=== PATIENT | female | born 1945 | race Caucasian/White ===

== ENCOUNTER 2019-07-14 02:05 | Observation (INO) | payer BC, MEDICARE ==
[~2019-07-14] VITALS: Ht 154.9 cm; Wt 157.5 kg
[~2019-07-14 02:05] MED LIST: ASCO100T4 PO; ASPI-482 PO; ATEN25TA PO; CALCIUM 500+VI1 EACH PO; CYCL5TAB PO; HYDR-3164 PO; IBUP200C PO; LISI10TA2 PO; LORA10CA PO; LORA10TA68 PO; MECL-75 PO; METF500T16 PO; MULT1CAP15 PO; POTASSIUM GLUCONATE; SIMV20TA18 PO; vitamin e
--- NOTE | 2019-07-14 02:34 | PHYS DOC ---
Past Medical History Past Medical History: Diabetes-Type II, High Cholesterol, Hypertension Additional Past Medical Histor: ABNORMAL VAGINAL BLEEDING Past Surgical History: Hysterectomy, Other Additional Past Surgical Histo: BILATEARL KNEE SURGERY Alcohol Use: None Drug Use: None Adult General Chief Complaint Chief Complaint: BACK PAIN OR INJURY HPI HPI 73-year-old female with underlying history of chronic back spasms presents to the emergency department with complaints of back spasm on the right side which started and it is worse over night. She states on Wednesday she saw her chiropractor, Wednesday felt better however overnight she states spasm has gotten worse. She denies any numbness or tingling down her legs. Movements make her pain worse. Patient states no nausea, vomiting, chest pain, SOB, abdominal pain or weakness. Review of Systems Review of Systems Constitutional: Denies fever or chills [] Respiratory: Denies cough or shortness of breath [] Cardiovascular: No additional information not addressed in HPI [] GI: Denies abdominal pain, nausea, vomiting, bloody stools or diarrhea [] : Denies dysuria or hematuria [] Musculoskeletal: + back pain/spasm Integument: Denies rash or skin lesions [] Neurologic: Denies headache, focal weakness or sensory changes [] All other systems were reviewed and found to be within normal limits, except as documented in this note. Current Medications Current Medications Current Medications Medications (Trade) Dose Ordered Sig/Shawna Start Time Stop Time Status Last Admin Dose Admin Dexamethasone Sodium Phosphate (Decadron) 10 mg 1X ONCE 07/14/19 02:45 07/14/19 02:46 DC 07/14/19 03:15 10 MG Orphenadrine Citrate (Norflex) 60 mg 1X ONCE 07/14/19 02:45 07/14/19 02:46 DC 07/14/19 03:13 60 MG Allergies Allergies Allergies Coded Allergies Type Severity Reaction Last Updated Verified adhesive Allergy Intermediate TAPE 03/06/16 Yes hydrochlorothiazide Allergy Intermediate rash 08/28/13 Yes Physical Exam Physical Exam Constitutional: Well developed, well nourished, no acute distress, non-toxic ap pearance. [] HENT: Normocephalic, atraumatic, bilateral external ears normal, oropharynx moist, no oral exudates, nose normal. [] Eyes: PERRLA, EOMI, conjunctiva normal, no discharge. [] Neck: Normal range of motion, no tenderness, supple, no stridor. [] Cardiovascular:Heart rate regular rhythm, no murmur [] Lungs & Thorax: Bilateral breath sounds clear to auscultation [] Abdomen: Bowel sounds normal, soft, no tenderness, no masses, no pulsatile masses. [] Skin: Warm, dry, no erythema, no rash. [] Back: Tenderness appreciated to right low back, no midline tenderness appreciated, no CVA tenderness. [] Extremities: No tenderness, no edema. [] Neurologic: Alert and oriented X 3, no focal deficits noted. [] Psychologic: Affect normal, judgement normal, mood normal. [] Current Patient Data Vital Signs Vital Signs Date Time Temp Pulse Resp B/P (MAP) Pulse Ox O2 Delivery O2 Flow Rate FiO2 07/14/19 02:05 98.1 88 18 142/69 (93) 95 Room Air 98.1 EKG EKG [] Radiology/Procedures Radiology/Procedures [] Course & Med Decision Making Course & Med Decision Making Pertinent Labs and Imaging studies reviewed. (See chart for details) []73-year-old female with underlying history of chronic back spasms presents to the emergency department with complaints of back spasm on the right side which started and it is worse over night. She states on Wednesday she saw her chiropractor, Wednesday felt better however overnight she states spasm has gotten worse. She denies any numbness or tingling down her legs. Movements make her pain worse. Patient states no nausea, vomiting, chest pain, SOB, abdominal pain or weakness. Norflex 60mg IM, Toradol 30mg IV, Decadron 10mg IV NO imaging at this time, given no injury Routine labs drawn Attempted to ambulate patient, she was able to get to the side of the bed with assistance x 3 however unable to get up on her own to ambulate Given patient lives alone - unable to dc home without safe dc plan Will admit for observation Nora Disclaimer Nora Disclaimer This electronic medical record was generated, in whole or in part, using a voice recognition dictation system. Departure Departure Impression: Primary Impression: Back pain Additional Impression: Back spasm Disposition: HOME, SELF-CARE Condition: STABLE Referrals: ANSHU MURO MD (PCP) Scripts Hydrocodone/Apap 5-325 (NORCO 5-325 TABLET) 1 Each Tablet 1 TAB PO PRN Q4-6HRS PRN for PAIN, #10 TAB 0 Refills Prov: MADDY LARSON MD 07/14/19 Problem Qualifiers Primary Impression: Back pain Back pain location: low back pain Chronicity: chronic Back pain laterality: unspecified Sciatica presence: without sciatica Qualified Codes: M54.5 - Low back pain; G89.29 - Other chronic pain MADDY LARSON MD Jul 14, 2019 02:34
[2019-07-14] MEDS ORDERED: DEXAMETHASONE SOD PHOS 4 MG/ML VIAL IVP ONE (02:45)
[2019-07-14] MEDS ORDERED: ORPHENADRINE CITRATE 60 MG/2 ML VIAL. IM ONE (02:45)
[2019-07-14] MEDS ORDERED: HYDR-3164 PO (04:27)
[2019-07-14 05:18] LABS: BASO % 0 % (0-3); EOS # 0.1 x10^3/uL (0.0-0.7); EOS % 1 % (0-3); HEMATOCRIT 39.6 % (36.0-47.0); HEMOGLOBIN 13.2 g/dL (12.0-15.5); LYMPH # 1.5 x10^3/uL (1.0-4.8); LYMPH % 16 % (24-48); MEAN CORPUSCULAR HEMOGLOBIN 28 pg (25-35); MEAN CORPUSCULAR HGB CONC 33 g/dL (31-37); MEAN CORPUSCULAR VOLUME 83 fL (79-100); MONO # 0.3 x10^3/uL (0.0-1.1); MONO % 3 % (0-9); NEUT # 7.6 x10^3/uL (1.8-7.7); NEUT % 80 % (31-73); PLATELET COUNT 240 x10^3/uL (140-400); RED BLOOD COUNT 4.79 x10^6/uL (3.50-5.40); RED CELL DISTRIBUTION WIDTH 14.7 % (11.5-14.5); WHITE BLOOD COUNT 9.5 x10^3/uL (4.0-11.0)
[2019-07-14] MEDS ORDERED: ACETAMINOPHEN 325 MG TABLET. PO PRN (05:30)
[2019-07-14] MEDS ORDERED: MORPHINE SULFATE 2 MG/ML VIAL. IV PRN (05:30)
[2019-07-14] MEDS ORDERED: ONDANSETRON PF 4 MG/2 ML VIAL. IV PRN (05:30)
[2019-07-14 05:33] LABS: ALBUMIN 3.3 g/dL (3.4-5.0); ALBUMIN/GLOBULIN RATIO 0.8 (1.0-1.7); CALCIUM 9.1 mg/dL (8.5-10.1); GFR 54.2; POTASSIUM 4.5 mmol/L (3.5-5.1); TOTAL BILIRUBIN 0.3 mg/dL (0.2-1.0); TOTAL PROTEIN 7.5 g/dL (6.4-8.2)
[2019-07-14 06:00] VITALS: BP 157/67
--- NOTE | 2019-07-14 06:30 | NUR ---
The patient, VICTOR M FALL, 73 y/o, F admitted by ALESSANDRA CROOK MD, was given written information regarding hospital policies, unit procedures and contact persons. Patient admission complete, plan of care discussed, and admit packet reviewed. Allergies and medications verified and valuables were checked and left in room with patient. Patient in bed, bed in lowest/locked position, and call light within reach, no other needs voiced at this time.
[2019-07-14 07:00] VITALS: BP 151/71
--- NOTE | 2019-07-14 08:17 | PDOC1 ---
History and Physical Date of Admission Date of Admission DATE: 07/14/19 TIME: 08:16 History of Present Illness History of Present Illness Ms Montelongo is a 73yo F w/ PMHx Diabetes-Type II, High Cholesterol, Hypertension, and underlying history of chronic back spasms presents to the emergency department with complaints of back spasm on the right side which started on Wednesday (07/11/19). So she saw her chiropractor, Wednesday felt better however overnight she states spasm had gotten worse. She denies any numbness or tingling down her legs. Movements make her pain worse. Patient states no nausea, vomiting, chest pain, SOB, abdominal pain or weakness. On further ROS she notes right shoulder pain with lateral movement and some hand tingling, has been told previously by neurology she likely has carpal tunnel. As she was unable to walk called for admission for overnight observation and further treatment. Past Medical History Cardiovascular: HTN, Hyperlipidemia Pulmonary: Bronchitis Psych: No pertinent hx Musculoskeletal: Osteoarthritis Endocrine: Diabetes Past Surgical History Past Surgical History: Cataract Removal, Total hip replacement, Tonsillectomy, Hysterectomy, Other Family History Family History: Cancer Social History Smoke: No ALCOHOL: none Drugs: None Current Problem List Problem List Problems Medical Problems: (1) Back pain Status: Acute (2) Back spasm Status: Acute Current Medications Current Medications Current Medications Dexamethasone Sodium Phosphate (Decadron) 10 mg 1X ONCE IVP Last administered on 07/14/19at 03:15; Start 07/14/19 at 02:45; Stop 07/14/19 at 02:46; Status DC Orphenadrine Citrate (Norflex) 60 mg 1X ONCE IM Last administered on 07/14/19at 03:13; Start 07/14/19 at 02:45; Stop 07/14/19 at 02:46; Status DC Ondansetron HCl (Zofran) 4 mg PRN Q8HRS PRN IV NAUSEA/VOMITING; Start 07/14/19 at 05:30; Stop 07/15/19 at 05:29 Morphine Sulfate (Morphine Sulfate) 2 mg PRN Q2HR PRN IV PAIN; Start 07/14/19 at 05:30; Stop 07/15/19 at 05:29 Acetaminophen (Tylenol) 650 mg PRN Q4HRS PRN PO FEVER; Start 07/14/19 at 05:30; Stop 07/15/19 at 05:29 Active Scripts Active Ripton 5-325 Tablet (Acetaminophen/Hydrocodone Bitart) 1 Each Tablet 1 Tab PO PRN Q4-6HRS PRN Cyclobenzaprine Hcl 5 Mg Tablet 1 Tab PO TID PRN Ripton 5-325 Tablet (Acetaminophen/Hydrocodone Bitart) 1 Each Tablet 1 Tab PO PRN Q6HRS PRN Meclizine Hcl 25 Mg Tablet 1 Tab PO TID Reported Claritin (Loratadine) 10 Mg Tablet 1 Tab PO DAILY Aspir 81 (Aspirin) 81 Mg Tablet.dr 81 Mg PO DAILY [potassium glutonate] 99 Mg HS Calcium 500+Vit D 400 Tab (Calcium Carbonate/Vitamin D3) 1 Each Tablet 1 Each PO HS Simvastatin 20 Mg Tablet 20 Mg PO DAILY Atenolol 25 Mg Tablet 25 Mg PO DAILY Metformin Hcl 500 Mg Tablet 500 Mg PO HS Ibuprofen 200 Mg Capsule 400 Mg PO DAILY Lisinopril 10 Mg Tablet 10 Mg PO DAILY Vitamin C (Ascorbic Acid) 100 Mg Tablet 1,000 Mg PO DAILY [vitamin e] 400 Units DAILY Multivitamins (Multivitamin) 1 Each Capsule 1 Each PO DAILY Allergies Allergies: Coded Allergies: adhesive (Verified Allergy, Intermediate, TAPE, 03/06/16) hydrochlorothiazide (Verified Allergy, Intermediate, rash, 08/28/13) ROS General: YES: Fatigue, Malaise; No: Chills, Night Sweats, Appetite, Other PSYCHOLOGICAL ROS: YES: Anxiety; No: Behavioral Disorder, Concentration difficultie, Decreased libido, Depression, Disorientation, Hallucinations, Hostility, Irritablity, Memory difficulties, Mood Swings, Obsessive thoughts, Physical abuse, Sexual abuse, Sleep disturbances, Suicidal ideation, Other Eyes: No Blurry vision, No Decreased vision, No Double vision, No Dry eyes, No Excessive tearing, No Eye Pain, No Itchy Eyes, No Loss of vision, No Photophobia, No Scotomata, No Uses contacts, No Uses glasses, No Other HEENT: No: Heacaches, Visual Changes, Hearing change, Nasal congestion, Nasal discharge, Oral lesions, Sinus pain, Sore Throat, Epistaxis, Sneezing, Snoring, Tinnitus, Vertigo, Vocal changes, Other ALLERGY AND IMMUNOLOGY: No: Hives, Insect Bite Sensitivity, Itchy/Watery Eyes, Nasal Congestion, Post Nasal Drip, Seasonal Allergies, Other Hematological and Lymphatic: No: Bleeding Problems, Blood Clots, Blood Tr ansfusions, Brusing, Night Sweats, Pallor, Swollen Lymph Nodes, Other ENDOCRINE: No: Breast Changes, Galactorrhea, Hair Pattern Changes, Hot Flashes, Malaise/lethargy, Mood Swings, Palpitations, Polydipsia/polyuria, Skin Changes, Temperature Intolerance, Unexpected Weight Changes, Other Breast: No New/Changing Breast Lumps, No Nipple changes, No Nipple discharge, No Other Respiratory: No: Cough, Hemoptysis, Orthopnea, Pleuritic Pain, Shortness of breath, SOB with excertion, Sputum Changes, Stridor, Tachypnea, Wheezing, Other Cardiovascular: No Chest Pain, No Palpitations, No Orthopnea, No Paroxysmal Noc. Dyspnea, No Edema, No Lt Headedness, No Other Gastrointestinal: No Nausea, No Vomiting, No Abdominal Pain, No Diarrhea, No Constipation, No Melena, No Hematochezia, No Other Genitourinary: No Dysuria, No Frequency, No Incontinence, No Hematuria, No Retention, No Discharge, No Urgency, No Pain, No Flank Pain, No Other, No , No , No , No , No , No , No Musculoskeletal: Yes Joint Pain, Yes Muscle Pain; No Gait Disturbance, No Joint Stiffness, No Joint Swelling, No Muscular Weakness, No Pain In:, No Swelling In:, No Other Vitals Vitals Vital Signs Date Time Temp Pulse Resp B/P (MAP) Pulse Ox O2 Delivery O2 Flow Rate FiO2 07/14/19 06:34 Room Air 07/14/19 06:00 97.9 94 18 157/67 (97) 92 97.9 Labs Labs Laboratory Tests Test 07/14/19 04:55 White Blood Count 9.5 x10^3/uL (4.0-11.0) Red Blood Count 4.79 x10^6/uL (3.50-5.40) Hemoglobin 13.2 g/dL (12.0-15.5) Hematocrit 39.6 % (36.0-47.0) Mean Corpuscular Volume 83 fL (79-100) Mean Corpuscular Hemoglobin 28 pg (25-35) Mean Corpuscular Hemoglobin Concent 33 g/dL (31-37) Red Cell Distribution Width 14.7 % (11.5-14.5) Platelet Count 240 x10^3/uL (140-400) Neutrophils (%) (Auto) 80 % (31-73) Lymphocytes (%) (Auto) 16 % (24-48) Monocytes (%) (Auto) 3 % (0-9) Eosinophils (%) (Auto) 1 % (0-3) Basophils (%) (Auto) 0 % (0-3) Neutrophils # (Auto) 7.6 x10^3/uL (1.8-7.7) Lymphocytes # (Auto) 1.5 x10^3/uL (1.0-4.8) Monocytes # (Auto) 0.3 x10^3/uL (0.0-1.1) Eosinophils # (Auto) 0.1 x10^3/uL (0.0-0.7) Basophils # (Auto) 0.0 x10^3/uL (0.0-0.2) Sodium Level 139 mmol/L (136-145) Potassium Level 4.5 mmol/L (3.5-5.1) Chloride Level 103 mmol/L (98-107) Carbon Dioxide Level 24 mmol/L (21-32) Anion Gap 12 (6-14) Blood Urea Nitrogen 18 mg/dL (7-20) Creatinine 1.0 mg/dL (0.6-1.0) Estimated GFR (Cockcroft-Gault) 54.2 BUN/Creatinine Ratio 18 (6-20) Glucose Level 130 mg/dL (70-99) Calcium Level 9.1 mg/dL (8.5-10.1) Total Bilirubin 0.3 mg/dL (0.2-1.0) Aspartate Amino Transf (AST/SGOT) 15 U/L (15-37) Alanine Aminotransferase (ALT/SGPT) 16 U/L (14-59) Alkaline Phosphatase 79 U/L (46-116) Total Protein 7.5 g/dL (6.4-8.2) Albumin 3.3 g/dL (3.4-5.0) Albumin/Globulin Ratio 0.8 (1.0-1.7) Laboratory Tests Test 07/14/19 04:55 White Blood Count 9.5 x10^3/uL (4.0-11.0) Red Blood Count 4.79 x10^6/uL (3.50-5.40) Hemoglobin 13.2 g/dL (12.0-15.5) Hematocrit 39.6 % (36.0-47.0) Mean Corpuscular Volume 83 fL (79-100) Mean Corpuscular Hemoglobin 28 pg (25-35) Mean Corpuscular Hemoglobin Concent 33 g/dL (31-37) Red Cell Distribution Width 14.7 % (11.5-14.5) Platelet Count 240 x10^3/uL (140-400) Neutrophils (%) (Auto) 80 % (31-73) Lymphocytes (%) (Auto) 16 % (24-48) Monocytes (%) (Auto) 3 % (0-9) Eosinophils (%) (Auto) 1 % (0-3) Basophils (%) (Auto) 0 % (0-3) Neutrophils # (Auto) 7.6 x10^3/uL (1.8-7.7) Lymphocytes # (Auto) 1.5 x10^3/uL (1.0-4.8) Monocytes # (Auto) 0.3 x10^3/uL (0.0-1.1) Eosinophils # (Auto) 0.1 x10^3/uL (0.0-0.7) Basophils # (Auto) 0.0 x10^3/uL (0.0-0.2) Sodium Level 139 mmol/L (136-145) Potassium Level 4.5 mmol/L (3.5-5.1) Chloride Level 103 mmol/L (98-107) Carbon Dioxide Level 24 mmol/L (21-32) Anion Gap 12 (6-14) Blood Urea Nitrogen 18 mg/dL (7-20) Creatinine 1.0 mg/dL (0.6-1.0) Estimated GFR (Cockcroft-Gault) 54.2 BUN/Creatinine Ratio 18 (6-20) Glucose Level 130 mg/dL (70-99) Calcium Level 9.1 mg/dL (8.5-10.1) Total Bilirubin 0.3 mg/dL (0.2-1.0) Aspartate Amino Transf (AST/SGOT) 15 U/L (15-37) Alanine Aminotransferase (ALT/SGPT) 16 U/L (14-59) Alkaline Phosphatase 79 U/L (46-116) Total Protein 7.5 g/dL (6.4-8.2) Albumin 3.3 g/dL (3.4-5.0) Albumin/Globulin Ratio 0.8 (1.0-1.7) Images Images MRI Lumbar spine 2016 - The changes of degenerative disc disease are seen throughout the lumbar spine. These findings result in mild to moderate left greater than right central spinal canal stenosis at L2-3, mild left greater than right central spinal canal stenosis at L3-4 and mild central spinal canal stenosis at L4-5. Multilevel neural foraminal stenosis of varying severity is seen as outlined above. At the L4-5 disc space a right lateral/far lateral focal disc herniation is seen which results in severe right neural foraminal stenosis at L4-5 and impinges upon the right L4 nerve root within the neural foramen VTE Prophylaxis Ordered VTE Prophylaxis Devices: No VTE Pharmacological Prophylaxi: Yes Assessment/Plan Assessment/Plan A/P: Unable to walk - related to right lower back pain, no radiculopathy. Will have norflex injection, steroids. NSAIDs, heat, lidoderm and consult PMR and PT Right lower back spasms - with h/o some lumbar spinal nerve impingement she does not have L4 radiculopathy as she did previously. Should do well with conservative measures of 5 days of steroids, muscle relaxants and aggressive PT, heat, lidoderm Diabetes-Type II - basal bolus plus regimen for insulin High Cholesterol - cont statin Hypertension - cont meds FEN - ADA diet PPX - lovenox FULL CODE Dispo - observe after medications, PT and PMR recommendations, likely she can go home later today with home health or outpatient aquatic PT. ALESSANDRA CROOK MD Jul 14, 2019 08:17
[2019-07-14] MEDS ORDERED: ASPIRIN ENTERIC COATED 81 MG TABLET.DR. PO SCH ×2 (10:00→21:00)
[2019-07-14] MEDS ORDERED: HYDROcodone/APAP 5/325MG 1 TAB TABLET PO PRN (10:00)
[2019-07-14] MEDS ORDERED: LISINOPRIL 10 MG TABLET PO SCH ×2 (10:00→21:00)
[2019-07-14] MEDS ORDERED: ATENOLOL 25 MG TABLET. PO SCH (10:00)
[2019-07-14 11:00] VITALS: BP 168/80
[2019-07-14] MEDS ORDERED: tiZANidine 4 MG TABLET. PO PRN (11:30)
[2019-07-14] MEDS ORDERED: methylPREDNISolone 4 MG TABLET. PO SCH (11:30)
[2019-07-14 15:00] VITALS: BP 152/71
[2019-07-14] MEDS ORDERED: TIZA4TAB2 PO (15:15)
[2019-07-14] MEDS ORDERED: PRED20TA PO (15:15)
--- NOTE | 2019-07-14 15:21 | SNU/HH DC ---
DISCHARGE WITH HOME HEALTH DISCHARGE INFORMATION: Discharge Date: Jul 14, 2019 Final Diagnosis: Problems Medical Problems: (1) Back pain Status: Acute (2) Back spasm Status: Acute Condition on Discharge: Stable CODE STATUS: Code Status: Full HOME HEALTH: Face to Face: I certify this patient is under my care and that I, or a nurse practitioner or physician's phlebotomist medical lab assistant working with me, had a face to face encounter that meets the physician face to face encounter requirements with this patient on 07/14/2019. Medical Complications: DJD, Falls RN For Eval/Treatment: Yes Physical Therapy For: Evalulation/Treatment Occupational Therapy For: Evaluation/Treatment Pt Meets Homebound Status: Unsteady balance w/ amb,, Limited distance walking POST DISCHARGE ORDERS: Activity Instructions for Disc: No restrictions Weight Bearing Status after Di: No restrictions DIET AFTER DISCHARGE: ADA CHECKS AFTER DISCHARGE: Checks after discharge: Check blood press - daily TREATMENT/EQUIPMENT ORDERS: Adaptive Equipment Issued: Front wheeled walker CERTIFICATION STATEMENT: Certification Statement: Certification Statement: Based on the above finding, I certify that this patient is confined to the home and needs intermittent [facility] care, physical therapy and/or speech therapy, or continues to need occupational therapy.~ This patient is under my care, and I have initiated the establishment of the plan of care.~ This patient will be followed by myself or a community physician who will periodically review the plan of care. Home Meds Active Scripts Prednisone (PREDNISONE) 20 Mg Tablet, 1 TAB PO DAILY for Lumbago for 5 Days, #5 TAB Prov:ALESSANDRA CROOK MD 07/14/19 Tizanidine Hcl (TIZANIDINE HCL) 4 Mg Tablet, 4 MG PO PRN Q8HRS PRN for MUSCLE SPASMS for 10 Days, #30 TAB Prov:ALESSANDRA CROOK MD 07/14/19 Hydrocodone/Apap 5-325 (NORCO 5-325 TABLET) 1 Each Tablet, 1 TAB PO PRN Q4-6HRS PRN for PAIN, #10 TAB 0 Refills Prov:MADDY LARSON MD 07/14/19 Cyclobenzaprine Hcl (CYCLOBENZAPRINE HCL) 5 Mg Tablet, 1 TAB PO TID PRN for MUSCLE SPASMS, #10 TAB Prov:BABAK LLOYD MD 03/20/16 Hydrocodone/Apap 5-325 (NORCO 5-325 TABLET) 1 Each Tablet, 1 TAB PO PRN Q6HRS PRN for PAIN, #10 TAB Prov:BABAK LLOYD MD 03/20/16 Meclizine Hcl (MECLIZINE HCL) 25 Mg Tablet, 1 TAB PO TID, #30 TAB 2 Refills Prov:NETO CAMACHO MD 01/02/16 Reported Medications Loratadine (CLARITIN) 10 Mg Tablet, 1 TAB PO DAILY, #30 TAB 5 Refills 01/01/16 Aspirin (ASPIR 81) 81 Mg Tablet.dr, 81 MG PO DAILY 08/28/13 [potassium glutonate] No Conflict Check, 99 MG HS 08/04/13 Calcium Carbonate/Vitamin D3 (CALCIUM 500+VIT D 400 TAB) 1 Each Tablet, 1 EACH PO HS 08/04/13 Simvastatin (SIMVASTATIN) 20 Mg Tablet, 20 MG PO DAILY 08/04/13 Atenolol (ATENOLOL) 25 Mg Tablet, 25 MG PO DAILY 08/04/13 Metformin Hcl (METFORMIN HCL) 500 Mg Tablet, 500 MG PO HS 08/04/13 Ibuprofen (IBUPROFEN) 200 Mg Capsule, 400 MG PO DAILY 08/04/13 Lisinopril (LISINOPRIL) 10 Mg Tablet, 10 MG PO DAILY 08/04/13 Ascorbic Acid (VITAMIN C) 100 Mg Tablet, 1000 MG PO DAILY 08/04/13 [vitamin e] No Conflict Check, 400 UNITS DAILY 08/04/13 Multivitamin (MULTIVITAMINS) 1 Each Capsule, 1 EACH PO DAILY 08/04/13 ALESSANDRA CROOK MD Jul 14, 2019 15:21
--- NOTE | 2019-07-14 16:46 | NUR ---
Discharge instructions given with prescriptions sent to pharmacy at [facility]. Answered questions and concerns. Verbalized understanding. sr. merchandise planner will arrange transportation.
--- NOTE | 2019-07-14 17:47 | NUR ---
Patient discharged via EMS at 1730.
[2019-07-14] MEDS ORDERED: metFORMIN 500 MG TABLET PO SCH (21:00)
[2019-07-14] MEDS ORDERED: SIMVASTATIN 20 MG TABLET PO SCH (21:00)
--- NOTE | 2019-07-15 00:04 | CONS ---
DATE OF CONSULTATION: 07/14/2019 ATTENDING PHYSICIAN: Dr. Wall. REASON FOR CONSULTATION: The patient was seen at the request of Dr. Wall for rehab evaluation. HISTORY OF PRESENT ILLNESS: This is a 73-year-old right-handed female with chronic lower back pain with recent exacerbation. The patient apparently had chiropractic treatment on 07/11/2019, but the pain came back on the evening of 07/12/2019. The patient was admitted for further evaluation and treatment. She admits with steroid Dosepak the pain is better. She admits some right shoulder pain in the last few days. The patient denies any tingling or numbness in the extremities or any trouble with her bowel or bladder control. PAST MEDICAL HISTORY: Includes hypertension, hyperlipidemia, bronchitis, osteoarthritis, diabetes mellitus, status post bilateral total knee arthroplasty and also hip replacement, tonsillectomy, hysterectomy, and cataract surgery. FAMILY HISTORY: Carcinoma. ALLERGIES: She is known allergic to ADHESIVE and HYDROCHLOROTHIAZIDE. SOCIAL HISTORY: The patient lives in a high-rise apartment alone. She uses a walker to get around. The patient feels comfortable to go home before the bad weather comes. The patient would like to have ambulance to take her home. The patient is having difficulty to climb into her sister's SUV. The patient also with known abdominal vaginal bleeding in the past. PHYSICAL EXAMINATION: Today, revealed an elderly female. She is alert, oriented to time, place, person and circumstance and follows commands appropriately, moves all 4 extremities voluntarily where she had 4+/5 grade muscle strength. She had tenderness to palpation over anterior aspect of right shoulder and over right cervical paraspinal and posterior shoulder girdle muscles and also over lumbar paraspinal muscles extending over to sacroiliac joint area. Straight leg raising test was negative bilaterally. She had equal perception of touch and pinprick sensation bilaterally. Deep tendon reflexes are decreased overall. She is independent with bed mobility and transfers and up walking using a roller walker. She is not using proper body mechanics during bed mobility and transfers. Straight leg raising test is negative bilaterally. ASSESSMENT: Elderly female with chronic lower back pain from degenerative disk disease and degenerative joint disease of lumbar vertebrae with recent exacerbation and no clinical evidence of ongoing lumbar radiculopathy, also sprain and tendinitis right shoulder. The patient with known chronic neck pain from degenerative disk disease and degenerative joint disease of cervical vertebrae. No clinical evidence of cervical radiculopathy. The patient is status post bilateral total knee arthroplasty, diabetes mellitus, hypertension, hyperlipidemia, and obesity. RECOMMENDATIONS: I have instructed in a home program of physical modalities, stretching exercises, and trigger point massage to her cervical and lumbar paraspinal muscles and physical modalities and Codman exercise to her right shoulder and reviewed with her proper body mechanics. Home when medically stable with outpatient or home health followup. Dr. Wall, I appreciate asking me to participate in the care of this interesting patient. I will be glad to follow her with you as needed for her rehabilitation. JOHN DELGADO MD DR: OLGA/ana JOB#: [id number] / [id number]
--- NOTE | 2019-07-16 15:46 | PDOC3 ---
Discharge Summary Visit Information Date of Admission: Jul 14, 2019 Date of Discharge: Jul 14, 2019 Admitting Diagnosis: Intractable back pain, unable to walk Final Diagnosis Problems Medical Problems: (1) Back pain Status: Acute (2) Back spasm Status: Acute Brief Hospital Course Allergies Allergies Coded Allergies Type Severity Reaction Last Updated Verified adhesive Allergy Intermediate TAPE 03/06/16 Yes hydrochlorothiazide Allergy Intermediate rash 08/28/13 Yes Brief Hospital Course Ms Montelongo is a 73yo F w/ PMHx Diabetes-Type II, High Cholesterol, Hypertension, and underlying history of chronic back spasms presents to the emergency department with complaints of back spasm on the right side which started on Wednesday (07/11/19). So she saw her chiropractor, Wednesday felt better however overnight she states spasm had gotten worse. She denies any numbness or tingling down her legs. Movements make her pain worse. Patient states no nausea, vomiting, chest pain, SOB, abdominal pain or weakness. On further ROS she notes right shoulder pain with lateral movement and some hand tingling, has been told previously by neurology she likely has carpal tunnel. As she was unable to walk called for admission for overnight observation and further treatment. Seen by PT, recommended home health. Seen by PMR Physician as well - instructed in a home program of physical modalities, stretching exercises, and trigger point massage to her cervical and lumbar paraspinal muscles and physical modalities and Codman exercise to her right shoulder and reviewed with her proper body mechanics. MRI Lumbar spine 2015 - The changes of degenerative disc disease are seen throughout the lumbar spine. These findings result in mild to moderate left greater than right central spinal canal stenosis at L2-3, mild left greater than right central spinal canal stenosis at L3-4 and mild central spinal canal stenosis at L4-5. Multilevel neural foraminal stenosis of varying severity is seen as outlined above. At the L4-5 disc space a right lateral/far lateral focal disc herniation is seen which results in severe right neural foraminal stenosis at L4-5 and impinges upon the right L4 nerve root within the neural foramen Problem list: Unable to walk - related to right lower back pain, no radiculopathy. Will have norflex injection, steroids. NSAIDs, heat, lidoderm and consult PMR and PT Right lower back spasms - with h/o some lumbar spinal nerve impingement she does not have L4 radiculopathy as she did previously. Should do well with conservative measures of 5 days of steroids, muscle relaxants and aggressive PT, heat, lidoderm Right shoulder pain - likely rotator cuff sprain of teres minor and supraspinatus, will get PT, NSAIDs, reduce use and overhead movement and if symptoms persist beyond 3 months an MRI may be indicated. Diabetes-Type II - basal bolus plus regimen for insulin High Cholesterol - cont statin Hypertension - cont meds Observed after medications, PT and PMR recommendations, she can go home later today with home health or outpatient aquatic PT. Greater than 135 minutes spent on same day admit and d/c. Discharge Information Condition at Discharge: Improved Follow Up: Weeks (1) Disposition/Orders: D/C to Home w/ HH Scheduled Ascorbic Acid (Vitamin C) 100 Mg Tablet, 1,000 MG PO DAILY, (Reported) Entered as Reported by: MACIEJ ROMERO on 08/04/13 125 Last Action: Reviewed on 07/14/19624 by CONNOR REED Aspirin (Aspir 81) 81 Mg Tablet.dr, 81 MG PO DAILY, (Reported) Entered as Reported by: VIVIAN GAYTAN on 08/28/13 0639 Last Action: Continued on 07/14/191002 by ALESSANDRA CROOK MD Atenolol (Atenolol) 25 Mg Tablet, 25 MG PO DAILY, (Reported) Entered as Reported by: MACIEJ ROMERO on 08/04/13 1256 Last Action: Continued on 07/14/191002 by ALESSANDRA CROOK MD Calcium Carbonate/Vitamin D3 (Calcium 500+Vit D 400 Tab) 1 Each Tablet, 1 EACH PO HS, (Reported) Entered as Reported by: MACIEJ ROMERO on 08/04/13 1258 Last Action: Reviewed on 07/14/19624 by CONNOR REED Ibuprofen (Ibuprofen) 200 Mg Capsule, 400 MG PO DAILY, (Reported) Entered as Reported by: MACIEJ ROMERO on 08/04/13 1255 Last Action: Reviewed on 07/14/19624 by CONNOR REED Lisinopril (Lisinopril) 10 Mg Tablet, 10 MG PO DAILY, (Reported) Entered as Reported by: MACIEJ ROMERO on 08/04/13 1254 Last Action: Continued on 07/14/19 100 by ALESSANDRA CROOK MD Loratadine (Claritin) 10 Mg Tablet, 1 TAB PO DAILY, #30 Ref 5 (Reported) Entered as Reported by: MONICA HIRSCH on 01/01/16 0917 Last Action: Reviewed on 07/14/19624 by CONNOR REED Meclizine Hcl (Meclizine Hcl) 25 Mg Tablet, 1 TAB PO TID, #30 Ref 2 Prescribed by: NETO CAMACHO on 01/02/16 0757 Metformin Hcl (Metformin Hcl) 500 Mg Tablet, 500 MG PO HS, (Reported) Entered as Reported by: MACIEJ ROMERO on 08/04/13 1255 Last Action: Continued on 07/14/191002 by ALESSANDRA CROOK MD Multivitamin (Multivitamins) 1 Each Capsule, 1 EACH PO DAILY, (Reported) Entered as Reported by: MACIEJ ROMERO on 08/04/13 1249 Last Action: Reviewed on 07/14/19624 by CONNOR REED Prednisone (Prednisone) 20 Mg Tablet, 1 TAB PO DAILY for Lumbago for 5 Days, #5 Prescribed by: ALESSANDRA CROOK MD on 07/14/19 1515 Simvastatin (Simvastatin) 20 Mg Tablet, 20 MG PO DAILY, (Reported) Entered as Reported by: MACIEJ ROMERO on 08/04/13 1257 Last Action: Continued on 07/14/191002 by ALESSANDRA CROOK MD [potassium glutonate] , 99 MG HS, (Reported) Entered as Reported by: MACIEJ ROMERO on 08/04/13 1259 Last Action: Reviewed on 07/14/19624 by CONNOR REED [vitamin e] , 400 UNITS DAILY, (Reported) Entered as Reported by: MACIEJ ROMERO on 08/04/13 1251 Last Action: Reviewed on 07/14/19624 by CONNOR REED Scheduled PRN Cyclobenzaprine Hcl (Cyclobenzaprine Hcl) 5 Mg Tablet, 1 TAB PO TID PRN for MUSCLE SPASMS, #10 Prescribed by: BABAK LLOYD on 03/20/16 0431 Hydrocodone/Apap 5-325 (Tate 5-325 Tablet) 1 Each Tablet, 1 TAB PO PRN Q6HRS PRN for PAIN, #10 Prescribed by: BABAK LLOYD on 03/20/16 0431 Last Action: Continued on 07/14/19 1003 by ALESSANDRA CROOK MD Hydrocodone/Apap 5-325 (Tate 5-325 Tablet) 1 Each Tablet, 1 TAB PO PRN Q4-6HRS PRN for PAIN, #10 Ref 0 Prescribed by: MADDY LARSON MD on 07/14/19 0427 Tizanidine Hcl (Tizanidine Hcl) 4 Mg Tablet, 4 MG PO PRN Q8HRS PRN for MUSCLE SPASMS for 10 Days, #30 Prescribed by: ALESSANDRA CROOK MD on 07/14/19 1515 ALESSANDRA CROOK MD Jul 16, 2019 15:45
== END 2019-07-14 17:30 | disposition home or self-care (01) ==
LOC: ER 02:05 → 4 NORTH 04:47 → INTOOBSV 04:47
PROVIDERS: ADMIT Internal Medicine; ATTEND Internal Medicine
DX: M62.830 Muscle spasm of back (principal); E11.9 Type 2 diabetes mellitus without complications; I10 Essential (primary) hypertension; E78.00 Pure hypercholesterolemia, unspecified; E78.5 Hyperlipidemia, unspecified; M19.90 Unspecified osteoarthritis, unspecified site; Z90.710 Acquired absence of both cervix and uterus; Z79.899 Other long term (current) drug therapy; Z96.649 Presence of unspecified artificial hip joint
CPT/HCPCS: 36415; 80053; 85025; 96372; 96374; 99284; G0378; J1100; J2360; J7509; G0379

== ENCOUNTER → 2020-03-25 | Outpatient (CLI) | payer BC ==
[~2020-03-25] MED LIST changes: +OMEP40CA45 PO; +PRED20TA PO; +TIZA4TAB2 PO
== END | disposition home or self-care (01) ==
LOC: LAB 12:53
PROVIDERS: ATTEND Internal Medicine Gastroenterology
DX: Z01.812 Encounter for preprocedural laboratory examination (principal); Z20.828 Contact with and (suspected) exposure to other viral communicable diseases; Z12.11 Encounter for screening for malignant neoplasm of colon
CPT/HCPCS: U0003-CS

== ENCOUNTER → 2020-03-28 | Day surgery (SDC) | payer BC ==
[~2020-03-28] MED LIST changes: +IV RINGERS,LACTATED 1000ML 1,000 ML IV SCH; +LIDOCAINE 2% PF 5 ML VIAL. ONE; +PROPOFOL 10 MG/ML (20ML) VIAL. IV ONE
[2020-03-28 13:05] VITALS: BP 188/82
== END | disposition home or self-care (01) ==
LOC: ENDOS 10:52
PROVIDERS: ATTEND Internal Medicine Gastroenterology
DX: R19.5 Other fecal abnormalities (principal); I10 Essential (primary) hypertension; E11.9 Type 2 diabetes mellitus without complications; E78.00 Pure hypercholesterolemia, unspecified; K64.0 First degree hemorrhoids; Z88.8 Allergy status to other drugs, medicaments and biological substances; Z79.82 Long term (current) use of aspirin; Z79.899 Other long term (current) drug therapy; Z79.84 Long term (current) use of oral hypoglycemic drugs
CPT/HCPCS: 45378; J2704

== ENCOUNTER 2021-01-22 16:45 | Emergency (ER) | payer BC ==
[2020-03-28 13:05] VITALS: BP 188/82
[~2021-01-22 16:45] MED LIST changes: -IV RINGERS,LACTATED 1000ML 1,000 ML IV SCH; -LIDOCAINE 2% PF 5 ML VIAL. ONE; +LISI10TA16 PO; -LISI10TA2 PO; -OMEP40CA45 PO; +OMEP40CA7 PO; -PROPOFOL 10 MG/ML (20ML) VIAL. IV ONE
== END 2021-01-22 18:00 | disposition left against medical advice (07) ==
LOC: ER 16:45
DX: M62.830 Muscle spasm of back (principal); Z53.21 Procedure and treatment not carried out due to patient leaving prior to being seen by health care provider

== ENCOUNTER 2021-01-24 02:08 | Emergency (ER) | payer BC ==
[~2021-01-24] VITALS: Ht 157.5 cm; Wt 159.9 kg
[2021-01-24] MEDS ORDERED: HYDROcodone/APAP 5/325MG 1 TAB TABLET PO ONE (04:00)
[2021-01-24] MEDS ORDERED: CYCLOBENZAPRINE 10 MG TABLET. PO ONE (04:00)
--- NOTE | 2021-01-24 04:16 | RAD ---
XR THORACIC SPINE 3VIEWS DATE: 01/24/2021 3:52 AM INDICATION: Reason: upper back pain / Spl. Instructions: / History: COMPARISON: None. FINDINGS: The upper thoracic vertebrae are obscured on the lateral view by overlying soft tissue and osseous st ructures. Bones/Alignment: No evidence of acute compression fracture. No listhesis. Joints: Degenerative changes of the spine. Miscellaneous: None. IMPRESSION: No evidence of acute compression fracture. Electronically signed by: Joe Cesar MD (01/24/2021 4:14 AM) PAYAL
--- NOTE | 2021-01-24 04:17 | RAD ---
XR CHEST 1V INDICATION: Reason: upper back pain / Spl. Instructions: / History: . COMPARISON STUDY: None. FINDINGS: Lungs: Normal lung volume. Mild basilar linear opacities. The tracheobronchial tree and hilar structu res are normal. Pleura: No pleural effusion or pneumothorax. Heart and Mediastinum: The cardiomediastinal silhouette is normal. Atherosclerosis of the thoracic ao rta. IMPRESSION: Mild basilar linear opacities, probably subsegmental atelectasis. Electronically signed by: Joe Cesar MD (01/24/2021 4:15 AM) [facility]ITALS[facility]ie
--- NOTE | 2021-01-24 04:33 | PHYS DOC ---
Past Medical History Past Medical History: Diabetes-Type II, High Cholesterol, Hypertension Additional Past Medical Histor: ABNORMAL VAGINAL BLEEDING Past Surgical History: Hysterectomy, Other Additional Past Surgical Histo: BILATEARL KNEE SURGERY Smoking Status: Never Smoker Alcohol Use: None Drug Use: None General Adult EDM: Chief Complaint: BACK PAIN - NO INJURY HPI: HPI: Patient is a 75 year old female presents with for evaluation of upper back pain. Patient states she has had back pain for approximately 3 weeks. Pain has become progressively becoming worse. Patient's pain is located along her her bilateral shoulder blades and occasionally radiates to her neck. Patient has no midline C-spine or T-spine tenderness. Patient has been being treated by her chiropractor--- she has a history of similar pain in the past that has been regulated by her chiropractor's treatments. Her chiropractor treatments have not resolved her pain. Patient did take a muscle relaxant which temporary relieves the pain. Patient's chiropractor recommended patient come to the emergency department for evaluation. Patient's pain intense tonight therefore patient called 911 for further evaluation and treatment. Review of Systems: Review of Systems: Constitutional: Denies fever or chills. [] Eyes: Denies change in visual acuity. [] HENT: Denies nasal congestion or sore throat. [] Respiratory: Denies cough or shortness of breath. [] Cardiovascular: Denies chest pain or edema. [] GI: Denies abdominal pain, nausea, vomiting, bloody stools or diarrhea. [] : Denies dysuria. [] Musculoskeletal: Positive back pain Integument: Denies rash. [] Neurologic: Denies headache, focal weakness or sensory changes. [] Endocrine: Denies polyuria or polydipsia. [] Lymphatic: Denies swollen glands. [] Psychiatric: Denies depression or anxiety. [] Heart Score: C/O Chest Pain: N/A Risk Factors: Risk Factors: DM, Current or recent (<one month) smoker, HTN, HLP, family history of CAD, obesity. Risk Scores: Score 0 - 3: 2.5% MACE over next 6 weeks - Discharge Home Score 4 - 6: 20.3% MACE over next 6 weeks - Admit for Clinical Observation Score 7 - 10: 72.7% MACE over next 6 weeks - Early Invasive Strategies Current Medications: Current Medications Medications (Trade) Dose Ordered Sig/Shawna Start Time Stop Time Status Last Admin Dose Admin Acetaminophen/ Hydrocodone Bitart (Lortab 5/325) 1 tab 1X ONCE 01/24/21 04:00 01/24/21 04:01 DC 01/24/21 04:28 1 TAB Cyclobenzaprine HCl (Flexeril) 10 mg 1X ONCE 01/24/21 04:00 01/24/21 04:01 DC 01/24/21 04:28 10 MG Allergies: Allergies: Allergies Coded Allergies Type Severity Reaction Last Updated Verified adhesive Allergy Intermediate TAPE 03/28/20 Yes hydrochlorothiazide Allergy Intermediate rash 03/28/20 Yes Physical Exam: PE: Constitutional: Well developed, well nourished, no acute distress, non-toxic appearance. [] HENT: Normocephalic, atraumatic, bilateral external ears normal, oropharynx moist, no oral exudates, nose normal. [] Eyes: PERRLA, EOMI, conjunctiva normal, no discharge. [] Neck: Normal range of motion, no tenderness, supple, no stridor. [] Cardiovascular:Heart rate regular rhythm, no murmur [] Lungs & Thorax: Bilateral breath sounds clear to auscultation [] Abdomen: Bowel sounds normal, soft, no tenderness, no masses, no pulsatile masses. [] Skin: Warm, dry, no erythema, no rash. [] Back: No tenderness, no CVA tenderness. [] Extremities: No tenderness, no cyanosis, no clubbing, ROM intact, no edema. [] Neurologic: Alert and oriented X 3, normal motor function, normal sensory function, no focal deficits noted. [] Psychologic: Affect normal, judgement normal, mood normal. [] Current Patient Data: Vital Signs: Vital Signs Date Time Temp Pulse Resp B/P (MAP) Pulse Ox O2 Delivery O2 Flow Rate FiO2 01/24/21 04:28 20 96 Room Air 01/24/21 02:10 98.4 69 148/65 (117) 98.4 EKG: EKG: [] Radiology/Procedures: Radiology/Procedures: [] Course & Med Decision Making: Course & Med Decision Making Pertinent Labs and Imaging studies reviewed. (See chart for details) [] Patient was evaluated for chief complaint. Work-up consisted of radiologic imaging. Treatment included Toradol and Flexeril. Patient will be discharged home with prescription Toradol and Flexeril. Patient advised to follow-up with her primary care physician. Nora Disclaimer: Nora Disclaimer: This electronic medical record was generated, in whole or in part, using a voice recognition dictation system. Departure Departure Impression: Primary Impression: Back pain Disposition: HOME / SELF CARE / HOMELESS Condition: STABLE Referrals: ANSHU MURO MD (PCP) Patient Instructions: Back Pain, Adult, Chronic Back Pain Scripts Hydrocodone/Acetaminophen (Hydrocodone-Acetamin 5-325 mg) 1 Each Tablet 1 EACH PO Q4-6HRS, #14 TAB Prov: LATIA OSUNA I DO 01/24/21 Cyclobenzaprine Hcl (CYCLOBENZAPRINE HCL) 10 Mg Tablet 1 TAB PO QHS, #20 TAB Prov: LATIA OSUNA DO 01/24/21 LATIA OSUNA I DO Jan 24, 2021 04:33
[2021-01-24 05:21] VITALS: BP 139/65
[2021-01-24] MEDS ORDERED: CYCL10TA2 PO (05:33)
[2021-01-24] MEDS ORDERED: HYDR-2759 PO (05:33)
== END 2021-01-24 06:11 | disposition home or self-care (01) ==
LOC: ER 02:08
DX: M54.6 Pain in thoracic spine (principal); E11.9 Type 2 diabetes mellitus without complications; E78.00 Pure hypercholesterolemia, unspecified; I10 Essential (primary) hypertension; Z88.8 Allergy status to other drugs, medicaments and biological substances
CPT/HCPCS: 71045; 72072; 99285

== ENCOUNTER 2021-04-23 07:09 | Emergency (ER) | payer BC ==
[~2021-04-23] VITALS: Ht 157.5 cm; Wt 159.3 kg
[~2021-04-23 07:09] MED LIST changes: +CYCL10TA2 PO; +HYDR-2759 PO
[2021-04-23] MEDS ORDERED: KETOROLAC 60 MG/2 ML VIAL. IM ONE (10:00)
[2021-04-23] MEDS ORDERED: CYCL10TA2 PO (10:16)
[2021-04-23 10:18] VITALS: BP 175/72
--- NOTE | 2021-04-23 10:18 | ED.ADGEN ---
Past Medical History Past Medical History: Diabetes-Type II, High Cholesterol, Hypertension Additional Past Medical Histor: ABNORMAL VAGINAL BLEEDING, morbid obesity, torticullis Past Surgical History: Hysterectomy, Tonsillectomy, Tubal ligation, Other Additional Past Surgical Histo: BILATEARL KNEE SURGERY, adenoidectomy Smoking Status: Never Smoker Alcohol Use: None Drug Use: None General Adult EDM: Chief Complaint: NECK PAIN HPI: HPI: Patient is a 75 year old female coming in for 5 days of bilateral posterior neck pain. Patient states she has had this kind of pain in the past and normally takes an herbal muscle relaxer and 400 mg ibuprofen in the mornings. Has 1 short chiropractor twice and was using alternating cold and heat. Patient states she is not having relief of her symptoms. Review of Systems: Review of Systems: All other systems within normal limits except for as noted in the HPI Current Medications: Current Medications Medications (Trade) Dose Ordered Sig/Shawna Start Time Stop Time Status Last Admin Dose Admin Ketorolac Tromethamine (Toradol Im) 60 mg 1X ONCE 04/23/21 10:00 04/23/21 10:01 DC Allergies: Allergies: Allergies Coded Allergies Type Severity Reaction Last Updated Verified adhesive Allergy Intermediate rash 04/23/21 Yes hydrochlorothiazide Allergy Intermediate rash 04/23/21 Yes Physical Exam: PE: Constitutional: Well developed, well nourished, no acute distress, non-toxic appearance. [] HENT: Normocephalic, atraumatic, bilateral external ears normal, nose normal. [] Eyes: PERRLA, conjunctiva normal, no discharge. [] Neck: No rigidity, supple, no stridor. No C-spine tenderness, muscle tenseness over bilateral paraspinous muscles of neck and upper thoracic spine [] Cardiovascular: Regular rate and rhythm, brisk cap refill [] Lungs & Thorax: Non labored symmetric respirations, no tachypnea or respiratory distress [] Abdomen: Soft, nondistended. Skin: Warm, dry, no erythema, no rash. [] Back: Unremarkable Extremities: No deformities, range of motion grossly intact, no lower extremity edema [] Neurologic: Alert and oriented X 3, no focal deficits noted. [] Psychologic: Affect normal, judgement normal, mood normal. [] Current Patient Data: Vital Signs: Vital Signs Date Time Temp Pulse Resp B/P (MAP) Pulse Ox O2 Delivery O2 Flow Rate FiO2 04/23/21 08:00 98.1 80 20 141/90 (107) 96 Room Air 98.1 EKG: EKG: [] Heart Score: C/O Chest Pain: No Risk Factors: Risk Factors: DM, Current or recent (<one month) smoker, HTN, HLP, family history of CAD, obesity. Risk Scores: Score 0 - 3: 2.5% MACE over next 6 weeks - Discharge Home Score 4 - 6: 20.3% MACE over next 6 weeks - Admit for Clinical Observation Score 7 - 10: 72.7% MACE over next 6 weeks - Early Invasive Strategies Radiology/Procedures: Radiology/Procedures: [] Course & Med Decision Making: Course & Med Decision Making Pertinent Labs and Imaging studies reviewed. (See chart for details) [] Dragon Disclaimer: Dragon Disclaimer: This electronic medical record was generated, in whole or in part, using a voice recognition dictation system. Departure Departure Impression: Primary Impression: Neck pain, bilateral Disposition: HOME / SELF CARE / HOMELESS Condition: STABLE Referrals: ANSHU MURO MD (PCP) Patient Instructions: Torticollis, Acute Additional Instructions: Take ibuprofen, 800 mg every 8 hours Scripts Cyclobenzaprine Hcl (CYCLOBENZAPRINE HCL) 10 Mg Tablet 1 TAB PO TID PRN for MUSCLE PAIN for 5 Days, #15 TAB Prov: HALINA ECHOLS MD 04/23/21 HALINA ECHOLS MD Apr 23, 2021 10:17
== END 2021-04-23 10:27 | disposition home or self-care (01) ==
LOC: ER 07:09
DX: M54.2 Cervicalgia (principal); E11.9 Type 2 diabetes mellitus without complications; E78.00 Pure hypercholesterolemia, unspecified; I10 Essential (primary) hypertension; E66.01 Morbid (severe) obesity due to excess calories; Z68.44 Body mass index [BMI] 60.0-69.9, adult; Z88.8 Allergy status to other drugs, medicaments and biological substances
CPT/HCPCS: 96372; 99283; J1885